=== PATIENT | male | born 1960 | race American Indian/Alaskan Native ===

== ENCOUNTER 2017-03-03 13:43 | Emergency (ER) | payer OTHER ==
[2017-03-03 14:26] LABS: Mean Corpuscular HGB Conc 30 % (32-34); Mean Corpuscular Volume 73 fl (84-94); Platelet Count 368 K/mm3 (140-440); Red Blood Count 4.63 M/mm3 (3.65-5.03); White Blood Count 2.4 K/mm3 (4.5-11.0)
[2017-03-03 14:39] LABS: Alanine Aminotransferase 88 units/L (7-56); Albumin 4.3 g/dL (3.9-5); Albumin/Globulin Ratio 1.2 %; Alkaline Phosphatase 83 units/L (35-129); Anion Gap 21 mmol/L; Blood Urea Nitrogen 7 mg/dL (9-20); Calcium 8.5 mg/dL (8.4-10.2); Carbon Dioxide 21 mmol/L (22-30); Chloride 98.8 mmol/L (98-107); Glucose 118 mg/dL (75-100); Lipase 55 units/L (13-60); Potassium 4.1 mmol/L (3.6-5.0); Sodium 137 mmol/L (137-145); Total Protein 7.8 g/dL (6.3-8.2)
[2017-03-03 14:42] LABS: Hematocrit 33.6 % (35.5-45.6); Hemoglobin 10.1 gm/dl (11.8-15.2); Mean Corpuscular Hemoglobin 22 pg (28-32); Red Cell Distribution Width 20.7 % (13.2-15.2)
[2017-03-03 15:36] LABS: Blastocytes % (Manual) 0 %
[2017-03-03 15:37] LABS: Anisocytosis 1+
[2017-03-03 15:38] LABS: Hypochromasia 2+; Microcytosis 1+
[2017-03-03 15:39] LABS: Polychromasia Few
[2017-03-03 15:41] LABS: Poikilocytosis Few
[2017-03-03 15:42] LABS: Diff Status Complete; Platelet Estimate Consistent w Auto; Target Cells Few
[2017-03-03] MEDS ORDERED: MORPHINE IV ONE (17:26)
[2017-03-03] MEDS ORDERED: VITAMIN B-1 100 MG, FOLVITE 1 MG, INFUVITE 10 ML in NACL 0.9% 1000 ML 1,000 ML IV ONE (18:00)
[2017-03-03 19:57] LABS: Urine Drugs of Abuse Note Disclamer
[2017-03-03] MEDS ORDERED: ATIVAN IV ONE (20:30)
[2017-03-03 20:33] LABS: Bilirubin,Urine NEG (Negative)
[2017-03-03 20:34] LABS: Blood,Urine NEG (Negative); Ketones,Urine TR mg/dL (Negative); Leukocyte Esterase,Urine NEG (Negative); Mucus,Urine FEW /HPF; Nitrite,Urine NEG (Negative); Urobilinogen,Urine < 2.0 mg/dL (<2.0)
[2017-03-04] MEDS ORDERED: PEPCID IV ONE (00:10)
[2017-03-04] MEDS ORDERED: MORPHINE IV ONE (00:10)
[2017-03-04] MEDS ORDERED: ATIVAN PO ONE (03:35)
[2017-03-04 04:00] VITALS: BP 136/89
[2017-03-04] MEDS ORDERED: NACL 0.9% 1000 ML 1,000 ML IV ONE (07:43)
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
== END 2017-03-04 11:58 | disposition home or self-care (01) ==
LOC: ED 13:43
DX: K29.00 Acute gastritis without bleeding (principal); I10 Essential (primary) hypertension; J18.9 Pneumonia, unspecified organism; K21.9 Gastro-esophageal reflux disease without esophagitis
CPT/HCPCS: 36415; 80053; 80307; 81001; 83690; 85007; 85025; 96365; 96366; 96375; 96376; 99283; G0480; J2060; J2270; J3411; J7030; 80320

== ENCOUNTER 2017-08-19 01:17 | Emergency (ER) | payer SELFPAY ==
[2017-08-19 01:52] VITALS: BP 145/97
[2017-08-19 02:47] LABS: Hematocrit 33.4 % (35.5-45.6); Hemoglobin 11.2 gm/dl (11.8-15.2); Mean Corpuscular HGB Conc 33 % (32-34); Mean Corpuscular Hemoglobin 29 pg (28-32); Mean Corpuscular Volume 86 fl (84-94); Platelet Count 342 K/mm3 (140-440); Red Blood Count 3.89 M/mm3 (3.65-5.03); Red Cell Distribution Width 17.9 % (13.2-15.2)
[2017-08-19 03:11] LABS: Alanine Aminotransferase 53 units/L (7-56); Albumin/Globulin Ratio 1.4 %; Alkaline Phosphatase 83 units/L (35-129); Anion Gap 18 mmol/L; BUN/Creatinine Ratio 10; Bilirubin,Total < 0.20 mg/dL (0.1-1.2); Blood Urea Nitrogen 7 mg/dL (9-20); Calcium 8.4 mg/dL (8.4-10.2); Carbon Dioxide 28 mmol/L (22-30); Chloride 105.6 mmol/L (98-107); Glucose 84 mg/dL (75-100); Lipase 55 units/L (13-60); Potassium 3.9 mmol/L (3.6-5.0); Sodium 148 mmol/L (137-145); Total Protein 6.8 g/dL (6.3-8.2)
[2017-08-19 03:21] LABS: Basophils % (Auto) 1.8 % (0.0-1.8); Eosinophils % (Auto) 3.6 % (0.0-4.3)
== END 2017-08-19 02:25 | disposition left against medical advice (07) ==
LOC: ED 01:17
DX: R10.9 Unspecified abdominal pain (principal); Z53.21 Procedure and treatment not carried out due to patient leaving prior to being seen by health care provider
CPT/HCPCS: 36415; 80053; 83690; 85025; G0480; 80320

== ENCOUNTER 2017-10-01 03:55 | Inpatient (IN) | payer SELFPAY ==
[2017-10-01 05:13] LABS: Alanine Aminotransferase 63 units/L (7-56); Albumin 4.1 g/dL (3.9-5); Albumin/Globulin Ratio 1.1 %; Alkaline Phosphatase 140 units/L (35-129); Anion Gap 23 mmol/L; BUN/Creatinine Ratio 6; Blood Urea Nitrogen 4 mg/dL (9-20); Calcium 8.3 mg/dL (8.4-10.2); Carbon Dioxide 23 mmol/L (22-30); Chloride 99.4 mmol/L (98-107); Glucose 93 mg/dL (75-100); Lipase 51 units/L (13-60); Potassium 3.8 mmol/L (3.6-5.0); Sodium 142 mmol/L (137-145); Total Protein 7.8 g/dL (6.3-8.2)
[2017-10-01 05:17] LABS: Hematocrit 29.5 % (35.5-45.6); Hemoglobin 9.5 gm/dl (11.8-15.2); Mean Corpuscular HGB Conc 32 % (32-34); Mean Corpuscular Hemoglobin 26 pg (28-32); Mean Corpuscular Volume 82 fl (84-94); Platelet Count 233 K/mm3 (140-440); Red Blood Count 3.61 M/mm3 (3.65-5.03); Red Cell Distribution Width 18.2 % (13.2-15.2)
[2017-10-01 05:23] LABS: White Blood Count 1.7 K/mm3 (4.5-11.0)
[2017-10-01 07:17] LABS: Anisocytosis 1+; Blastocytes % (Manual) 0 %; Hypochromasia 1+; Ovalocytes Few; Target Cells Rare
[2017-10-01 07:18] LABS: Diff Status Complete; Platelet Estimate Consistent w Auto
[2017-10-01] MEDS ORDERED: VITAMIN B-1 100 MG, FOLVITE 1 MG, INFUVITE 10 ML, MAGNESIUM SULFATE 2 GM in NACL 0.9% 1... IV ONE (12:21)
[2017-10-01] MEDS ORDERED: NACL 0.9% 1000 ML 1,000 ML IV ONE (12:21)
--- NOTE | 2017-10-01 12:32 | Emergency Department Report ---
HPI - General Chief Complaint: Abdominal Pain Time Seen by Provider: 10/01/17 12:11 - HPI HPI: Room 7 The patient is a 57-year-old male presenting with a chief complaint of abdominal pain. The patient states his symptoms developed last night with left- sided abdominal pain described as sharp and constant in nature. Patient missed to nausea but denies vomiting. Patient states she's had copious diarrhea since last night. Patient denies any history of fever. Location: Abdomen Duration: Constant Since last night Quality: Sharp Severity: Moderate Modifying factors: [see above] Context: [see above] Mode of transportation: [not driving] ED Past Medical Hx - Past Medical History Previous Medical History?: Yes Hx Hypertension: Yes Additional medical history: h/o bleeding ulcers, GERD, pancreatitis, pneumonia - Surgical History Past Surgical History?: Yes Additional Surgical History: TONSILLECTOMY - Family History Family history: no significant - Social History Smoking Status: Former Smoker (none 30 years) Substance Use Type: Alcohol - Medications Home Medications: Home Medications Medication Instructions Recorded Confirmed Last Taken Type chlordiazePOXIDE [Librium] 25 mg PO Q6H #20 capsule 09/06/17 10/01/17 Unknown Rx ED Review of Systems ROS: Stated complaint: ABDOMINAL PAIN Other details as noted in HPI Constitutional: denies: fever ENT: other (denies rhinorrhea) Gastrointestinal: abdominal pain, nausea, diarrhea. denies: vomiting Physical Exam - Physical Exam Vital Signs: Vital Signs 10/01/17 04:07 Temperature 98.5 F Pulse Rate 70 Respiratory 17 Rate Blood Pressure 121/74 O2 Sat by Pulse 99 Oximetry Physical Exam: GENERAL: The patient is well-developed well-nourished male lying on stretcher not appearing to be in acute distress. [] HEENT: Normocephalic. Atraumatic. Extraocular motions are intact. Patient has moist mucous membranes. NECK: Supple. Trachea midline CHEST/LUNGS: Clear to auscultation. There is no respiratory distress noted. HEART/CARDIOVASCULAR: Regular. There is no tachycardia. There is no gallop rub or murmur. ABDOMEN: Abdomen is soft, with tenderness to palpation in the midepigastric region. Patient has normal bowel sounds. There is no abdominal distention. SKIN: There is no rash. There is no edema. There is no diaphoresis. NEURO: The patient is awake, alert, and oriented. The patient is cooperative. The patient has normal speech MUSCULOSKELETAL: There is no evidence of acute injury. ED Course Vital Signs 10/01/17 04:07 Temperature 98.5 F Pulse Rate 70 Respiratory 17 Rate Blood Pressure 121/74 O2 Sat by Pulse 99 Oximetry ED Medical Decision Making - Lab Data Result diagrams: 10/01/17 04:20 10/01/17 04:20 Laboratory Tests 10/01/17 10/01/17 10/01/17 04:20 04:20 04:20 WBC 1.7 L* RBC 3.61 L Hgb 9.5 L Hct 29.5 L MCV 82 L MCH 26 L MCHC 32 RDW 18.2 H Plt Count 233 Baso % (Auto) Commercial Lines Account Assistant Add Manual Diff Complete Total Counted 100 Seg Neutrophils % Commercial Lines Account Assistant Seg Neuts % (Manual) 40.0 Band Neutrophils % 8.0 Lymphocytes % (Manual) 33.0 Reactive Lymphs % (Man) 0 Monocytes % (Manual) 9.0 H Eosinophils % (Manual) 8.0 H Basophils % (Manual) 2.0 H Metamyelocytes % 0 Myelocytes % 0 Promyelocytes % 0 Blast Cells % 0 Nucleated RBC % Not Reportable Seg Neutrophils # Man 0.7 L Band Neutrophils # 0.1 Lymphocytes # (Manual) 0.6 L Abs React Lymphs (Man) 0.0 Monocytes # (Manual) 0.2 Eosinophils # (Manual) 0.1 Basophils # (Manual) 0.0 Metamyelocytes # 0.0 Myelocytes # 0.0 Promyelocytes # 0.0 Blast Cells # 0.0 WBC Morphology Not Reportable Hypersegmented Neuts Not Reportable Hyposegmented Neuts Not Reportable Hypogranular Neuts Not Reportable Smudge Cells Not Reportable Toxic Granulation Not Reportable Toxic Vacuolation Not Reportable Dohle Bodies Not Reportable Pelger-Huet Anomaly Not Reportable Carmelo Rods Not Reportable Platelet Estimate Consistent w auto Clumped Platelets Not Reportable Plt Clumps, EDTA Not Reportable Large Platelets Not Reportable Giant Platelets Not Reportable Platelet Satelliting Not Reportable Plt Morphology Comment Not Reportable RBC Morphology Not Reportable Dimorphic RBCs Not Reportable Polychromasia Not Reportable Hypochromasia 1+ Poikilocytosis Not Reportable Anisocytosis 1+ Microcytosis Not Reportable Macrocytosis Not Reportable Spherocytes Not Reportable Pappenheimer Bodies Not Reportable Sickle Cells Not Reportable Target Cells Rare Tear Drop Cells Not Reportable Ovalocytes Few Helmet Cells Not Reportable [place] Bodies Not Reportable [place] Rings Not Reportable Kevin Cells Not Reportable Bite Cells Not Reportable Crenated Cell Not Reportable Elliptocytes Not Reportable Acanthocytes (Spur) Not Reportable Rouleaux Not Reportable Hemoglobin C Crystals Not Reportable Schistocytes Not Reportable Malaria parasites Not Reportable Sumit Bodies Not Reportable Hem Pathologist Commnt No Sodium 142 Potassium 3.8 Chloride 99.4 Carbon Dioxide 23 Anion Gap 23 BUN 4 L Creatinine 0.7 L Estimated GFR > 60 BUN/Creatinine Ratio 6 Glucose 93 Calcium 8.3 L Total Bilirubin 0.30 AST 217 H ALT 63 H Alkaline Phosphatase 140 H Total Protein 7.8 Albumin 4.1 Albumin/Globulin Ratio 1.1 Lipase 51 Plasma/Serum Alcohol 0.51 H - Radiology Data Radiology results: report reviewed (CT abdomen and pelvis), image reviewed (CT abdomen and pelvis) FINAL REPORT PROCEDURE: CT ABDOMEN PELVIS W CON TECHNIQUE: Computerized axial tomography of the abdomen and pelvis was performed after the IV injection of iodinated nonionic contrast. HISTORY: epigastric abdominal pain, alcoholism COMPARISON: No prior studies are available for comparison. FINDINGS: Lower Lung gallagher: No focal abnormality seen. Upper Abdomen: Liver density is markedly diffusely decreased suggesting fatty infiltration. The liver is otherwise unremarkable. The gallbladder, the adrenal glands, the pancreas and the spleen are unremarkable Kidneys, Ureters and Urinary bladder: No abnormalities are seen. Retroperitoneum: Atherosclerotic changes are seen in the abdominal aorta. No aneurysm is visualized. Nonspecific subcentimeter lymph nodes are seen in the retroperitoneum. No pathologically enlarged lymph nodes are identified. Bowel: Mild to moderate diverticulosis visualized sigmoid colon without evidence of diverticulitis. Mild diverticulosis seen descending colon. No evidence of bowel obstruction ascites or free intraperitoneal gas. Normal-appearing appendix is seen in the right lower quadrant. Other: No acute bony abnormalities are identified. There is moderate degenerative disc disease in the upper and lower lumbar spine. There appears to be an asymmetric disc protrusion at the L5-S1 level greater to the right than the left. This appears to be resting on the right S1 nerve root IMPRESSION: Marked fatty infiltration of the liver suspected. The liver is otherwise unremarkable. Colonic diverticulosis without evidence of diverticulitis. Degenerative disc changes lumbar spine as described above. Transcribed By: FAMILIA Dictated By: RUDY CORTEZ MD Electronically Authenticated By: RUDY CORTEZ MD Signed Date/Time: 10/01/171232 DD/ 32 TD/TT: 10/01/171232 - Differential Diagnosis pancreatitis, peptic ulcer disease, gastritis, GERD, colitis Critical care attestation.: If time is entered above; I have spent that time in minutes in the direct care of this critically ill patient, excluding procedure time. ED Disposition Clinical Impression: Alcohol abuse, Pancreatitis, Abdominal pain, acute, epigastric Disposition: OP ADMIT IP TO THIS HOSP Is pt being admited?: Yes Does the pt Need Aspirin: No Condition: Fair Referrals: PRIMARY CARE, [Primary Care Provider] - 3-5 Days Time of Disposition: 16:49 (hospitalist paged (Dr Ortiz))
[2017-10-01 12:59] LABS: Bilirubin,Urine NEG (Negative); Blood,Urine SM (Negative); Ketones,Urine NEG (Negative); Leukocyte Esterase,Urine NEG (Negative); Mucus,Urine FEW /HPF; Nitrite,Urine NEG (Negative); Protein,Urine <15 mg/dL mg/dL (Negative); Urobilinogen,Urine < 2.0 mg/dL (<2.0); WBC,Urine < 1.0 /HPF (0.0-6.0)
[2017-10-01] MEDS ORDERED: NACL ONE (14:23)
--- NOTE | 2017-10-01 16:36 | Cat Scan Report ---
FINAL REPORT PROCEDURE: CT ABDOMEN PELVIS W CON TECHNIQUE: Computerized axial tomography of the abdomen and pelvis was performed after the IV injection of iodinated nonionic contrast. HISTORY: epigastric abdominal pain, alcoholism COMPARISON: No prior studies are available for comparison. FINDINGS: Lower Lung gallagher: No focal abnormality seen. Upper Abdomen: Liver density is markedly diffusely decreased suggesting fatty infiltration. The liver is otherwise unremarkable. The gallbladder, the adrenal glands, the pancreas and the spleen are unremarkable Kidneys, Ureters and Urinary bladder: No abnormalities are seen. Retroperitoneum: Atherosclerotic changes are seen in the abdominal aorta. No aneurysm is visualized. Nonspecific subcentimeter lymph nodes are seen in the retroperitoneum. No pathologically enlarged lymph nodes are identified. Bowel: Mild to moderate diverticulosis visualized sigmoid colon without evidence of diverticulitis. Mild diverticulosis seen descending colon. No evidence of bowel obstruction ascites or free intraperitoneal gas. Normal-appearing appendix is seen in the right lower quadrant. Other: No acute bony abnormalities are identified. There is moderate degenerative disc disease in the upper and lower lumbar spine. There appears to be an asymmetric disc protrusion at the L5-S1 level greater to the right than the left. This appears to be resting on the right S1 nerve root IMPRESSION: Marked fatty infiltration of the liver suspected. The liver is otherwise unremarkable. Colonic diverticulosis without evidence of diverticulitis. Degenerative disc changes lumbar spine as described above.
[2017-10-01] MEDS ORDERED: ZOFRAN IV PRN ×2 (18:42→20:15)
[2017-10-01] MEDS: DILAUDID IV PRN ×2 (18:54→22:51)
--- NOTE | 2017-10-01 20:14 | Event Note ---
Date: 10/01/17 See dictated H/P in reports Acute pancreatitis ETOH dependence
[2017-10-01] MEDS ORDERED: DULCOLAX PR PRN (20:15)
[2017-10-01] MEDS ORDERED: MILK OF MAGNESIA PO PRN (20:15)
[2017-10-01] MEDS ORDERED: DILAUDID IV PRN (20:15)
[2017-10-01] MEDS ORDERED: HALDOL IV PRN ×2 (20:20)
[2017-10-01] MEDS ORDERED: ATIVAN PO PRN (20:20)
[2017-10-01] MEDS ORDERED: ATIVAN IV PRN (20:20)
[2017-10-01] MEDS ORDERED: ATIVAN ONE (20:51)
[2017-10-01] MEDS: ATIVAN IV PRN (21:05)
[2017-10-01 21:19] LABS: Magnesium 2.3 mg/dL (1.7-2.3); Phosphorous 3.6 mg/dL (2.5-4.5)
[2017-10-01] MEDS: D5NS 1,000 ML IV SCH (22:52)
[2017-10-01] MEDS: PEPCID IV SCH (22:52)
[2017-10-02] MEDS: ATIVAN IV PRN ×4 (03:22→23:34)
[2017-10-02] MEDS: DILAUDID IV PRN ×2 (05:09→22:41)
[2017-10-02 06:58] LABS: Hematocrit 28.2 % (35.5-45.6); Hemoglobin 9.1 gm/dl (11.8-15.2); Mean Corpuscular HGB Conc 32 % (32-34); Mean Corpuscular Hemoglobin 27 pg (28-32); Mean Corpuscular Volume 82 fl (84-94); Platelet Count 213 K/mm3 (140-440); Red Blood Count 3.45 M/mm3 (3.65-5.03); Red Cell Distribution Width 17.8 % (13.2-15.2); White Blood Count 2.7 K/mm3 (4.5-11.0)
[2017-10-02 07:58] LABS: Anisocytosis 1+; Blastocytes % (Manual) 0 %; Diff Status Complete; Elliptocytes 1+; Hypochromasia 1+; Ovalocytes 2+; Poikilocytosis 1+; Stomatocytes Rare; Target Cells Rare
[2017-10-02 08:04] LABS: Alanine Aminotransferase 74 units/L (7-56); Albumin/Globulin Ratio 1.1 %; Alkaline Phosphatase 148 units/L (35-129); Anion Gap 22 mmol/L; BUN/Creatinine Ratio 10; Blood Urea Nitrogen 6 mg/dL (9-20); Calcium 8.2 mg/dL (8.4-10.2); Carbon Dioxide 22 mmol/L (22-30); Chloride 92.5 mmol/L (98-107); Glucose 77 mg/dL (75-100); Potassium 4.2 mmol/L (3.6-5.0); Sodium 132 mmol/L (137-145); Total Protein 7.5 g/dL (6.3-8.2)
[2017-10-02] MEDS: LOVENOX SUB-Q SCH ×2 (10:35→16:53)
[2017-10-02] MEDS ORDERED: Fluarix Quad 2017-2018(36 MOS+ IM ONE (12:00)
[2017-10-02] MEDS ORDERED: PNEUMOVAX 23 IM ONE (12:00)
[2017-10-02] MEDS: PEPCID IV SCH ×2 (16:50→22:42)
[2017-10-02] MEDS: D5NS 1,000 ML IV SCH (16:51)
[2017-10-02] MEDS: ATIVAN PO PRN ×2 (17:51→23:42)
--- NOTE | 2017-10-02 22:50 | Progress Note ---
Assessment and Plan - Patient Problems (1) Toxic encephalopathy Current Visit: Yes Status: Acute Plan to address problem: Sec to ETOH Should resolve with IV fluids and time (2) Abdominal pain, acute, epigastric Current Visit: Yes Status: Acute Plan to address problem: On PPI's sec to Gastritis (3) EtOH dependence Current Visit: Yes Status: Chronic Qualifiers: Substance use status: with intoxication Plan to address problem: Patient initiated on CIWA protocol (4) Transaminitis Current Visit: Yes Status: Acute Plan to address problem: Sec to ETOH Rule our Hep C/B (5) Gastritis Current Visit: Yes Status: Acute Qualifiers: Gastritis type: alcoholic Plan to address problem: ON PPI's (6) DVT prophylaxis Current Visit: Yes Status: Acute Plan to address problem: SCD's only Subjective Date of service: 10/02/17 Principal diagnosis: ETOH intoxication abd pain Interval history: Symptomatically better.Wants to go home. Objective - Constitutional Vitals: Vital Signs - 12hr 10/02/17 18:35 Temperature 98.0 F Pulse Rate 75 Respiratory 18 Rate Blood Pressure 137/91 O2 Sat by Pulse 97 Oximetry General appearance: Present: no acute distress, well-nourished - EENT Eyes: PERRL, EOM intact ENT: hearing intact, clear oral mucosa Ears: bilateral: normal - Neck Neck: supple, normal ROM - Respiratory Respiratory effort: normal Respiratory: bilateral: CTA - Breasts Breasts: normal - Cardiovascular Heart rate: 78 Rhythm: regular Heart Sounds: Present: S1 & S2. Absent: gallop, rub Extremities: no ischemia, pulses intact, pulses symmetrical, No edema, normal color, Full ROM - Gastrointestinal General gastrointestinal: Present: soft, non-tender, non-distended, normal bowel sounds - Genitourinary Male genitourinary: normal - Integumentary Integumentary: clear, warm, dry - Musculoskeletal Musculoskeletal: 1, strength equal bilaterally - Neurologic Neurologic: moves all extremities - Psychiatric Psychiatric: memory intact, appropriate mood/affect, intact judgment & insight - Labs CBC & Chem 7: 10/02/17 06:04 10/02/17 06:04 Labs: Abnormal lab results 10/02/17 10/02/17 Range/Units 06:04 06:04 WBC 2.7 L (4.5-11.0) K/mm3 RBC 3.45 L (3.65-5.03) M/mm3 Hgb 9.1 L (11.8-15.2) gm/dl Hct 28.2 L (35.5-45.6) % MCV 82 L (84-94) fl MCH 27 L (28-32) pg RDW 17.8 H (13.2-15.2) % Monocytes % (Manual) 9.0 H (0.0-7.3) % Basophils % (Manual) 4.0 H (0.0-1.8) % Seg Neutrophils # Man 1.7 L (1.8-7.7) K/mm3 Lymphocytes # (Manual) 0.6 L (1.2-5.4) K/mm3 Sodium 132 L D (137-145) mmol/L Chloride 92.5 L (98-107) mmol/L BUN 6 L (9-20) mg/dL Creatinine 0.6 L (0.8-1.5) mg/dL Calcium 8.2 L (8.4-10.2) mg/dL AST 248 H (5-40) units/L ALT 74 H (7-56) units/L Alkaline Phosphatase 148 H (35-129) units/L
--- NOTE | 2017-10-03 00:06 | History and Physical Report ---
CHIEF COMPLAINT: Acute abdominal pain since last night. HISTORY OF PRESENT ILLNESS: A 57-year-old male who presents to the ER with severe epigastric and periumbilical pain since last night. Pain is 10/10. Also, has diarrhea. Nausea present. No vomiting. No exacerbating or relieving factors. Pain is about 10 on a scale of 1-10. PAST MEDICAL HISTORY: Significant for hypertension, recurrent pancreatitis, gastroesophageal reflux disease, peptic ulcer disease, bleeding ulcers, and pneumonia. PAST SURGICAL HISTORY: Tonsillectomy. FAMILY HISTORY: No significant family history. SOCIAL HISTORY: Alcohol resumed recently about 2 weeks ago, was using alcohol heavily until 1 year ago. Did not smoke for the last 30 years. HOME MEDICATIONS: Chlordiazepoxide. REVIEW OF SYSTEMS: Significant for severe epigastric and periumbilical pain, 10/10, associated with nausea and vomiting sometimes. Otherwise, review of systems is essentially negative. PHYSICAL EXAMINATION: GENERAL: Middle-aged male, cooperative during examination. VITAL SIGNS: Blood pressure is 121/74, temperature is 98.5, pulse respirations are 17. HEENT: Unremarkable. Pupils equal and reactive. NECK: Supple. No lymphadenopathy, no thyromegaly. LUNGS: Clear to auscultation and percussion. Good air entry. CARDIOVASCULAR: S1, S2 heard. No gallop, no murmur, no rub. Apical impulse in left fifth intercostal space and midclavicular line. ABDOMEN: Soft and benign. No hepatosplenomegaly. Tenderness present in the epigastric and periumbilical region. Guarding present. Rebound tenderness present. Hernial orifices are normal. EXTREMITIES: Good pedal pulses. No pedal edema. CENTRAL NERVOUS SYSTEM: Alert and oriented x 4, nonfocal exam. SKIN: Normal. LABORATORY DATA: Significant for white count of 1700, H and H of 9.5 and 29.5. BUN and creatinine is 4 and 0.7. REPORT: Abdomen and pelvis CT did not show any acute pancreatitis changes. Colonic diverticulosis. Marked fatty infiltration of the liver. Degenerative disk disease in the lumbar spine. ASSESSMENT AND PLAN: 1. Acute pancreatitis. We will keep the patient n.p.o., pain management in the meantime. Surgical consult if necessary. 2. Transaminitis, etiology unclear. We will check hepatitis profile. 3. ETOH dependence and ETOH intoxication. The patient's serum level is 0.51. The patient to be on CIWA protocol for withdrawal symptoms. 4. Delirium tremens. The patient to get CIWA protocol to prevent delirium tremens. 5. Deep venous thrombosis prophylaxis, Lovenox 40 mg subcutaneous daily. 6. Neutropenia, 1700, unknown etiology. We will repeat. Also, needs vitamin, Neupogen if necessary. It may be secondary to suppression by sepsis. JOB# [id number] VSM/NTS
[2017-10-03] MEDS: DILAUDID IV PRN ×4 (02:00→20:58)
[2017-10-03] MEDS: TYLENOL PO PRN ×2 (02:00→19:52)
[2017-10-03] MEDS: ATIVAN PO PRN (02:15)
[2017-10-03] MEDS: ATIVAN IV PRN ×3 (03:25→17:34)
[2017-10-03] MEDS ORDERED: VITAMIN B-1 100 MG, FOLVITE 1 MG, INFUVITE 10 ML in NACL 0.9% 1000 ML 1,000 ML IV ONE (03:26)
[2017-10-03] MEDS: LIBRIUM PO PRN ×7 (03:30→22:08)
[2017-10-03] MEDS: PROTONIX IV SCH ×2 (09:17→20:59)
[2017-10-03] MEDS: LOVENOX SUB-Q SCH (09:21)
--- NOTE | 2017-10-03 10:16 | Consultation ---
History of Present Illness Consult date: 10/03/17 Reason for consult: abdominal pain Requesting physician: ROSS SINGH Chief complaint: abdominal pain - History of present illness History of present illness: 57 yo M presented to ER with c/o severe LUQ abdominal pain that started yesterday. He states the pain radiated to epigastrum. It is much improved now and he is asking to be discharged. The patient states he has been drinking etoh heavily over the last 2 weeks. He drinks 4 beers per day. No f/c, cp, sob, n/v. He did have diarrhea yesterday, but this has improved. No hematochezia, melena. patient has a known hx of GERD and gastric ulcers for which he is on nexium, however he has been noncompliant with meds. Past History Past Medical History: GERD, other (PUD) Past Surgical History: No surgical history Social history: alcohol abuse (4 beers a day). denies: smoking Family history: no significant family history Medications and Allergies Allergies Allergy/AdvReac Type Severity Reaction Status Date / Time No Known Allergies Allergy Verified 06/11/16 00:22 Home Medications Medication Instructions Recorded Confirmed Last Taken Type chlordiazePOXIDE [Librium] 25 mg PO Q6H #20 capsule 09/06/17 10/01/17 Unknown Rx Active Meds: Active Medications Acetaminophen (Tylenol) 650 mg PO Q4H PRN PRN Reason: Pain MILD(1-3)/Fever >100.5/MORRISON Last Admin: 10/03/17 02:00 Dose: 650 mg Bisacodyl (Dulcolax) 10 mg PA QDAY PRN PRN Reason: Constipation unrelieved by MOM Chlordiazepoxide HCl (Librium) 100 mg PO Q1H PRN PRN Reason: CIWA-Ar 16-25 Last Admin: 10/03/17 03:30 Dose: 100 mg Chlordiazepoxide HCl (Librium) 50 mg PO Q1H PRN PRN Reason: CIWA-Ar 8-15 Last Admin: 10/03/17 09:16 Dose: 50 mg Enoxaparin Sodium (Lovenox) 40 mg SUB-Q QDAY BLANCA Last Admin: 10/03/17 09:21 Dose: 40 mg Haloperidol Lactate (Haldol) 5 mg IV Q1H PRN PRN Reason: Unrespon. to mult. doses BZD's Haloperidol Lactate (Haldol) 10 mg IV Q1H PRN PRN Reason: CIWA-Ar >15 and unrespon BZD's Hydromorphone HCl (Dilaudid) 1 mg IV Q3H PRN PRN Reason: Pain , Severe (7-10) Last Admin: 10/03/17 02:00 Dose: 1 mg Dextrose/Sodium Chloride (D5ns) 1,000 mls @ 100 mls/hr IV DIRECT BLANCA Last Admin: 10/02/17 16:51 Dose: 100 mls/hr Lorazepam (Ativan) 2 mg IV Q1H PRN PRN Reason: CIWA-Ar 8-15 Last Admin: 10/03/17 03:25 Dose: 2 mg Lorazepam (Ativan) 2 mg PO Q1H PRN PRN Reason: CIWA-Ar 8-15 Last Admin: 10/03/17 02:15 Dose: 2 mg Lorazepam (Ativan) 4 mg IV Q1H PRN PRN Reason: CIWA-Ar 16-25 Last Admin: 10/02/17 08:09 Dose: 4 mg Lorazepam (Ativan) 4 mg PO Q1H PRN PRN Reason: CIWA-Ar 16-25 Lorazepam (Ativan) 4 mg IV Q15MIN PRN PRN Reason: CIWA-Ar >25 Magnesium Hydroxide (Milk Of Magnesia) 30 ml PO Q4H PRN PRN Reason: Constipation Ondansetron HCl (Zofran) 4 mg IV Q3H PRN PRN Reason: N/V unrelieved by Reglan Pantoprazole Sodium (Protonix) 40 mg IV BID [facility] Last Admin: 10/03/17 09:17 Dose: 40 mg Review of Systems All systems: negative (see hpi) Exam Vital Signs Temp Pulse Resp BP Pulse Ox 98.5 F 70 17 121/74 99 10/01/17 04:07 10/01/17 04:07 10/01/17 04:07 10/01/17 04:07 10/01/17 04:07 Narrative exam: Gen: AAOx3. NAD. anxious appearing CV: S1, S2+ Resp: No audible wheezes Abd: soft, ND, mild TTP LUQ. no r/r/g Ext: No c/c/e Results - Labs 10/02/17 06:04 10/02/17 06:04 Abnormal lab results 10/03/17 Range/Units 03:35 POC Glucose 119 H (70-105) - Imaging CT scan - abdomen: report reviewed, image reviewed CT scan - pelvis: report reviewed, image reviewed Assessment and Plan 57 yo M with abdominal pain, etoh abuse 1. abd pain likely secondary to PUD and exacerbation of known ulcers by excessive etoh intake. NO evidence of pancreatitis based on labs or CT scan 2. on reg diet and tolerating 3. continue PPI on discharge 4. needs etoh counseling 5. may be discharged from surgical standpoint
[2017-10-03 11:48] LABS: Anion Gap 20 mmol/L; BUN/Creatinine Ratio 8; Blood Urea Nitrogen 4 mg/dL (9-20); Calcium 8.2 mg/dL (8.4-10.2); Carbon Dioxide 24 mmol/L (22-30); Chloride 93.2 mmol/L (98-107); Glucose 83 mg/dL (75-100); Potassium 4.3 mmol/L (3.6-5.0); Sodium 133 mmol/L (137-145)
--- NOTE | 2017-10-03 13:20 | Progress Note ---
Assessment and Plan Assessment and plan: Patient wants to go home, he is not stable enough to go home. He is alert and Oriented and able to make his own decisions. - Patient Problems (1) Delirium tremens Current Visit: Yes Status: Acute Plan to address problem: Patient is on CIWA protocol. (2) Abdominal pain, acute, epigastric Current Visit: Yes Status: Acute Plan to address problem: Likely from gastritis and patient is on PPI (3) Alcohol abuse Current Visit: Yes Status: Acute Plan to address problem: Patient is counseled about cessation of alcohol, and will be given resources at discharge. (4) Toxic encephalopathy Current Visit: Yes Status: Acute Plan to address problem: Due to alcohol abuse (5) Transaminitis Current Visit: Yes Status: Acute Plan to address problem: AST/ALT is greater than 2 likely due to alcohol, counseled about cessation of alcohol. Outpatient follow-up (6) EtOH dependence Current Visit: Yes Status: Chronic Qualifiers: Substance use status: with intoxication Plan to address problem: Alcohol cessation counseling (7) HTN (hypertension) Current Visit: No Status: Chronic Qualifiers: Hypertension type: essential hypertension Qualified Code(s): I10 - Essential (primary) hypertension Plan to address problem: Currently stable, will restart him on a blood pressure medication if his blood pressure is going up. History Interval history: Patient was seen and developed this morning, patient wants to go home, patient is still in DT. Patient has tremor of the hands and tachycardia. I'm not comfortable to send him. He is alert and oriented he can make his own decision. Hospitalist Physical - Physical exam Narrative exam: Not in cardiopulmonary distress. The patient appeared well nourished and normally developed. Vital signs as documented. Head exam is unremarkable. No scleral icterus . Neck is without jugular venous distension, thyromegaly, or carotid bruits. Lungs are clear to auscultation. Cardiac exam reveals regular rate and Rhythm. Tachycardia. Abdominal exam reveals normal bowel sounds, no masses, no organomegaly and no aortic enlargement. Extremities are nonedematous and both femoral and pedal pulses are normal. MINISTER OF RELIGION: Alert and oriented 3. Patient has tremor of his fingers. Psychiatry: Patient is anxious. - Constitutional Vitals: Temp Pulse Resp BP Pulse Ox 99.3 F 96 H 22 131/91 98 10/03/17 12:31 10/03/17 12:31 10/03/17 12:31 10/03/17 12:31 10/03/17 12:31 General appearance: Present: no acute distress, well-nourished Results - Labs CBC & Chem 7: 10/02/17 06:04 10/03/17 11:00 Labs: Laboratory Last Values WBC 2.7 K/mm3 (4.5-11.0) L 10/02/17 06:04 RBC 3.45 M/mm3 (3.65-5.03) L 10/02/17 06:04 Hgb 9.1 gm/dl (11.8-15.2) L 10/02/17 06:04 Hct 28.2 % (35.5-45.6) L 10/02/17 06:04 MCV 82 fl (84-94) L 10/02/17 06:04 MCH 27 pg (28-32) L 10/02/17 06:04 MCHC 32 % (32-34) 10/02/17 06:04 RDW 17.8 % (13.2-15.2) H 10/02/17 06:04 Plt Count 213 K/mm3 (140-440) 10/02/17 06:04 Johnston % (Auto) Video Game Designer 10/02/17 06:04 Baso % (Auto) Video Game Designer 10/01/17 04:20 Add Manual Diff Complete 10/02/17 06:04 Total Counted 100 10/02/17 06:04 Seg Neutrophils % Video Game Designer 10/01/17 04:20 Seg Neuts % (Manual) 63.0 % (40.0-70.0) 10/02/17 06:04 Band Neutrophils % 0 % 10/02/17 06:04 Lymphocytes % (Manual) 22.0 % (13.4-35.0) 10/02/17 06:04 Reactive Lymphs % (Man) 0 % 10/02/17 06:04 Monocytes % (Manual) 9.0 % (0.0-7.3) H 10/02/17 06:04 Eosinophils % (Manual) 2.0 % (0.0-4.3) 10/02/17 06:04 Basophils % (Manual) 4.0 % (0.0-1.8) H 10/02/17 06:04 Metamyelocytes % 0 % 10/02/17 06:04 Myelocytes % 0 % 10/02/17 06:04 Promyelocytes % 0 % 10/02/17 06:04 Blast Cells % 0 % 10/02/17 06:04 Nucleated RBC % Not Reportable 10/02/17 06:04 Seg Neutrophils # Man 1.7 K/mm3 (1.8-7.7) L 10/02/17 06:04 Band Neutrophils # 0.0 K/mm3 10/02/17 06:04 Lymphocytes # (Manual) 0.6 K/mm3 (1.2-5.4) L 10/02/17 06:04 Abs React Lymphs (Man) 0.0 K/mm3 10/02/17 06:04 Monocytes # (Manual) 0.2 K/mm3 (0.0-0.8) 10/02/17 06:04 Eosinophils # (Manual) 0.1 K/mm3 (0.0-0.4) 10/02/17 06:04 Basophils # (Manual) 0.1 K/mm3 (0.0-0.1) 10/02/17 06:04 Metamyelocytes # 0.0 K/mm3 10/02/17 06:04 Myelocytes # 0.0 K/mm3 10/02/17 06:04 Promyelocytes # 0.0 K/mm3 10/02/17 06:04 Blast Cells # 0.0 K/mm3 10/02/17 06:04 WBC Morphology Not Reportable 10/02/17 06:04 Hypersegmented Neuts Not Reportable 10/02/17 06:04 Hyposegmented Neuts Not Reportable 10/02/17 06:04 Hypogranular Neuts Not Reportable 10/02/17 06:04 Smudge Cells Not Reportable 10/02/17 06:04 Toxic Granulation Not Reportable 10/02/17 06:04 Toxic Vacuolation Not Reportable 10/02/17 06:04 Dohle Bodies Not Reportable 10/02/17 06:04 Pelger-Huet Anomaly Not Reportable 10/02/17 06:04 Carmelo Rods Not Reportable 10/02/17 06:04 Platelet Estimate Appears normal 10/02/17 06:04 Clumped Platelets Not Reportable 10/02/17 06:04 Plt Clumps, EDTA Not Reportable 10/02/17 06:04 Large Platelets Not Reportable 10/02/17 06:04 Giant Platelets Not Reportable 10/02/17 06:04 Platelet Satelliting Not Reportable 10/02/17 06:04 Plt Morphology Comment Not Reportable 10/02/17 06:04 RBC Morphology Not Reportable 10/02/17 06:04 Dimorphic RBCs Not Reportable 10/02/17 06:04 Polychromasia Not Reportable 10/02/17 06:04 Hypochromasia 1+ 10/02/17 06:04 Poikilocytosis 1+ 10/02/17 06:04 Anisocytosis 1+ 10/02/17 06:04 Microcytosis Not Reportable 10/02/17 06:04 Macrocytosis Not Reportable 10/02/17 06:04 Spherocytes Not Reportable 10/02/17 06:04 Pappenheimer Bodies Not Reportable 10/02/17 06:04 Sickle Cells Not Reportable 10/02/17 06:04 Target Cells Rare 10/02/17 06:04 Tear Drop Cells Not Reportable 10/02/17 06:04 Ovalocytes 2+ 10/02/17 06:04 Stomatocytes Rare 10/02/17 06:04 Helmet Cells Not Reportable 10/02/17 06:04 Cohn-Lowell Bodies Not Reportable 10/02/17 06:04 [place] Rings Not Reportable 10/02/17 06:04 Kevin Cells Not Reportable 10/02/17 06:04 Bite Cells Not Reportable 10/02/17 06:04 Crenated Cell Not Reportable 10/02/17 06:04 Elliptocytes 1+ 10/02/17 06:04 Acanthocytes (Spur) Not Reportable 10/02/17 06:04 Rouleaux Not Reportable 10/02/17 06:04 Hemoglobin C Crystals Not Reportable 10/02/17 06:04 Schistocytes Not Reportable 10/02/17 06:04 Malaria parasites Not Reportable 10/02/17 06:04 Sumit Bodies Not Reportable 10/02/17 06:04 Hem Pathologist Commnt No 10/02/17 06:04 Sodium 133 mmol/L (137-145) L 10/03/17 11:00 Potassium 4.3 mmol/L (3.6-5.0) 10/03/17 11:00 Chloride 93.2 mmol/L (98-107) L 10/03/17 11:00 Carbon Dioxide 24 mmol/L (22-30) 10/03/17 11:00 Anion Gap 20 mmol/L 10/03/17 11:00 BUN 4 mg/dL (9-20) L 10/03/17 11:00 Creatinine 0.5 mg/dL (0.8-1.5) L 10/03/17 11:00 Estimated GFR > 60 ml/min 10/03/17 11:00 BUN/Creatinine Ratio 8 % 10/03/17 11:00 Glucose 83 mg/dL (75-100) 10/03/17 11:00 POC Glucose 119 (70-105) H 10/03/17 03:35 Hemoglobin A1c 4.8 % (4-6) 10/01/17 20:50 Calcium 8.2 mg/dL (8.4-10.2) L 10/03/17 11:00 Phosphorus 3.60 mg/dL (2.5-4.5) 10/01/17 20:20 Magnesium 2.30 mg/dL (1.7-2.3) 10/01/17 20:20 Total Bilirubin 0.80 mg/dL (0.1-1.2) 10/02/17 06:04 AST 248 units/L (5-40) H 10/02/17 06:04 ALT 74 units/L (7-56) H 10/02/17 06:04 Alkaline Phosphatase 148 units/L (35-129) H 10/02/17 06:04 Ammonia 44.0 umol/L (25-60) 10/01/17 20:33 Total Protein 7.5 g/dL (6.3-8.2) 10/02/17 06:04 Albumin 4.0 g/dL (3.9-5) 10/02/17 06:04 Albumin/Globulin Ratio 1.1 % 10/02/17 06:04 Amylase 74 units/L (27-131) 10/01/17 20:20 Lipase 43 units/L (13-60) 10/01/17 20:20 Urine Color Yellow (Yellow) 10/01/17 12:30 Urine Turbidity Clear (Clear) 10/01/17 12:30 Urine pH 5.0 (5.0-7.0) 10/01/17 12:30 Ur Specific [place] 1.011 (1.003-1.030) 10/01/17 12:30 Urine Protein <15 mg/dl mg/dL (Negative) 10/01/17 12:30 Urine Glucose (UA) Neg mg/dL (Negative) 10/01/17 12:30 Urine Ketones Neg mg/dL (Negative) 10/01/17 12:30 Urine Blood Sm (Negative) 10/01/17 12:30 Urine Nitrite Neg (Negative) 10/01/17 12:30 Urine Bilirubin Neg (Negative) 10/01/17 12:30 Urine Urobilinogen < 2.0 mg/dL (<2.0) 10/01/17 12:30 Ur Leukocyte Esterase Neg (Negative) 10/01/17 12:30 Urine WBC (Auto) < 1.0 /HPF (0.0-6.0) 10/01/17 12:30 Urine RBC (Auto) 5.0 /HPF (0.0-6.0) 10/01/17 12:30 Urine Mucus Few /HPF 10/01/17 12:30 Plasma/Serum Alcohol 0.51 gm% (0-0.07) H 10/01/17 04:20 Hepatitis A IgM Ab Non-reactive (NonReactive) 10/03/17 08:53 Hep B Core IgM Ab Non-reactive (NonReactive) 10/03/17 08:53 Hepatitis C Antibody Non-reactive (NonReactive) 10/03/17 08:53
[2017-10-03] MEDS: D5NS 1,000 ML IV SCH (19:50)
[2017-10-04] MEDS: D5NS 1,000 ML IV SCH (04:05)
[2017-10-04] MEDS: LIBRIUM PO PRN ×3 (04:06→09:14)
[2017-10-04] MEDS: LOVENOX SUB-Q SCH (09:13)
[2017-10-04] MEDS: PROTONIX IV SCH (09:14)
[2017-10-04 09:18] VITALS: BP 105/70
--- NOTE | 2017-10-04 12:21 | Discharge Summary ---
Providers - Providers Date of Admission: 10/01/17 20:15 Attending physician: GERMAIN MARCELO MD 10/02/17 23:35 Consult to Physician [CONS] Routine Consulting Provider: ARSALAN LOVING Reason For Exam: ac pancre Place consult to:: DR. LOVING Notified:: DR. LOVING Time called:: 08:46 10/03/17 07:59 Consult to Mental Health [CONS] Routine Reason For Exam: etoh dependence Place consult to:: VU Notified:: VU Phone number called:: [phone] Time called:: 10:42 Primary care physician: L[employer] RESOURCE MANAGER Hospitalization Reason for admission: Alcohol intoxication, epigastric pain Condition: Stable Pertinent studies: CT of abdomen and pelvis significant for diverticulosis, fatty liver infiltration, no pancreatitis Hospital course: 57 year old male presented to the emergency department with severe epigastric and periumbilical pain and day before presentation. Pain was severe 10 out of 10 associated with diarrhea and nausea but no vomiting. Patient with alcoholic. CT abdomen and pelvis was done and negative for pancreatitis, lipase normal surgery was consulted and recommended no intervention needed. Patient's abdominal pain was subsided with pain medication. Patient was able to tolerate by mouth. Patient had symptoms of DT and was treated according to CIWA protocol. Patient showed improvement and patient became out of DT. Patient insisted to be discharged home. Patient was advised to have follow-up with primary care physician for possible alcoholic hepatitis. Patient said "he will sign AMA if you not not going discharge me". Patient was discharged home. He was stable at the time of discharge. He was given resources for quitting alcohol and he agreed with the plan and went home. Appropriate medication prescription was given at the time of discharge. Disposition: DC-01 TO HOME OR SELFCARE Time spent for discharge: 31 minutes - Discharge Diagnoses (1) Delirium tremens Status: Acute (2) Abdominal pain, acute, epigastric Status: Acute (3) Alcohol abuse Status: Acute (4) Toxic encephalopathy Status: Acute (5) Transaminitis Status: Acute (6) EtOH dependence Status: Chronic Qualifiers: Substance use status: with intoxication (7) HTN (hypertension) Status: Chronic Qualifiers: Hypertension type: essential hypertension Qualified Code(s): I10 - Essential (primary) hypertension Core Measure Documentation - Palliative Care Palliative Care/ Comfort Measures: Not Applicable - Core Measures Any of the following diagnoses?: none Exam - Physical Exam Narrative exam: Not in cardiopulmonary distress. The patient appeared well nourished and normally developed. Vital signs as documented. Head exam is unremarkable. No scleral icterus . Neck is without jugular venous distension, thyromegaly, or carotid bruits. Lungs are clear to auscultation. Cardiac exam reveals regular rate and Rhythm. Tachycardia. Abdominal exam reveals normal bowel sounds, no masses, no organomegaly and no aortic enlargement. Extremities are nonedematous and both femoral and pedal pulses are normal. WAREHOUSE PACKER: Alert and oriented 3. Patient has tremor of his fingers. Psychiatry: Patient was not anxious. - Constitutional Vitals: Temp Pulse Resp BP Pulse Ox 99.3 F 78 20 105/70 97 10/04/17 09:00 10/04/17 09:00 10/04/17 09:00 10/04/17 09:00 10/04/17 09:00 Plan Activity: no restrictions Weight Bearing Status: Full Weight Bearing Diet: low fat Additional Instructions: Patient was given community resources for his alcohol abuse. Please follow at [facility] in 1 week. Follow up with: PRIMARY CAREMD [Primary Care Provider] - 7 Days Prescriptions: Esomeprazole Magnesium [NexIUM] 20 mg PO QDAY #30 cap
[2017-10-04] MEDS ORDERED: NORCO 5/325 PO PRN (12:28)
== END 2017-10-04 15:45 | disposition home or self-care (01) | DRG 896 ==
LOC: ED 03:55 → 3A 20:15
PROVIDERS: ADMIT Internal Medicine; ATTEND Internal Medicine
DX: F10.221 Alcohol dependence with intoxication delirium (principal); G92 Toxic encephalopathy; K21.9 Gastro-esophageal reflux disease without esophagitis; Z87.891 Personal history of nicotine dependence; Y90.9 Presence of alcohol in blood, level not specified; K29.70 Gastritis, unspecified, without bleeding; I10 Essential (primary) hypertension; Z71.41 Alcohol abuse counseling and surveillance of alcoholic
CPT/HCPCS: 36415; 74177; 80048; 80053; 80074; 80320; 81001; 82140; 82150; 82962; 83036; 83690; 83735; 84100; 85007; 85025; 90686; 90732; 96374; 96375; 99285; 99406; C9113; G0480; J1170; J1650; J2060; J2405; J3411; J3475; J7030; J7042; Q9967